=== PATIENT | male | born 1980 | race Caucasian/White ===

== ENCOUNTER → 2018-04-30 | Outpatient (CLI) | payer OTHER ==
--- NOTE | 2018-05-01 17:56 | 24HR ---
[place] [address] HOLTER MONITOR REPORT Name: BLAIRANAISMELISSA R Room: [facility]#: [id number] Admission: 04/30/18 Attend Phys: Vicki Pisano Discharge: Date of : 76 Date of Service: 05/01/18 0945 Report #: [id number] THIS REPORT FOR: //name// [facility] Test Date: 2018-05-01 Test Time: 09:45:46 Pat Name: MELISSA SORTO Department: Room: Gender: M [employer] Architect: : [id number] Requested By: Vicki Arriaga Order Number: [id number] Anisa MD: Kenny Shipman Interpretive Statements 24-hour Holter monitor The basic underlying rhythm is normal sinus. The mean heart rate is 69 bpm. The maximum heart rate was 125 bpm corresponding with sinus tachycardia at 12:47 PM. The minimum heart rate was 38 bpm corresponding with sinus bradycardia at 5:14 AM. The patient exhibited tachycardia Defined as heart rate greater than 100 bpm 3% of the monitored phase. The patient exhibited bradycardia defined as heart rate less than 50 bpm 1% of the monitored phase. There were frequent unifocal premature ventricular contractions noted. There were no episodes of significant nonsustained or sustained ventricular tachycardia. There were occasional premature atrial contractions noted. There were no episodes of significant nonsustained or sustained supraventricular arrhythmia. There were no significant pauses and rhythm. There was no evidence of underlying atrial fibrillation or flutter. No diary was submitted with this Holter monitor. Electronically Signed On 05-01-2018 17:56:17 CDT by Kenny Shipman [email or web address] <ELECTRONICALLY SIGNED> By: Kenny Shipman MD, FACC 05/01/18 1756 0945 0945 Kenny Shipman MD, FACC /EPI
== END ==
LOC: M.CRD 09:59
DX: I49.3 Ventricular premature depolarization (principal)